=== PATIENT | female | born 1955 | race Caucasian/White ===

== ENCOUNTER 2021-02-18 10:32 | Day surgery (SDC) | payer MEDICARE ==
[2021-02-14 11:12] LABS: BASOPHILS % (AUTO) 0.4 % (0-1); EOSINOPHILS # (AUTO) 0.1 X10'3 (0-0.9); EOSINOPHILS % (AUTO) 2.6 % (0-6); LYMPHOCYTES # (AUTO) 0.9 X10'3 (1.1-4.8); LYMPHOCYTES % (AUTO) 31.1 % (21-51); MEAN CORPUSCULAR HEMOGLOBIN 33.9 PG (27.0-31.0); MEAN CORPUSCULAR HGB CONC 34.7 g/dL (33.0-36.5); MEAN CORPUSCULAR VOLUME 97.9 FL (78-98); MEAN PLATELET VOLUME 7.5 FL (7.4-10.4); MONOCYTES # (AUTO) 0.5 X10'3 (0-0.9); MONOCYTES % (AUTO) 16.3 % (2-12); NEUTROPHILS # (AUTO) 1.5 X10'3 (1.8-7.7); NEUTROPHILS % (AUTO) 49.6 % (42-75); PRE OP HEMATOCRIT 38.3 % (35.0-45.0); PRE OP HEMOGLOBIN 13.3 g/dL (12.0-16.0); PRE OP PLATELET COUNT 220 X10'3 (140-440); RED BLOOD COUNT 3.91 X10'6 (4.20-5.60); RED CELL DISTRIBUTION WIDTH 14.3 % (11.5-14.5)
[2021-02-14 11:27] LABS: ALBUMIN 3.1 G/DL (3.4-5.0); ALKALINE PHOSPHATASE 82 IU/L (46-116); BLOOD UREA NITROGEN 7 MG/DL (7-18); BUN/CREATININE RATIO 15.9 (6.6-38.0); CALCIUM 8.2 MG/DL (8.5-10.1); CHLORIDE 98 MMOL/L (99-107); CREATININE 0.44 MG/DL (0.40-0.90); PRE OP ALT 16 U/L (30-65); PRE OP ANION GAP 10 (8-16); PRE OP AST 15 U/L (10-37); PRE OP BILIRUB, TOTAL 0.8 MG/DL (0.0-1.0); PRE OP GLUCOSE 89 MG/DL (70-104); PRE OP SODIUM 136 MMOL/L (135-145); TOTAL CARBON DIOXIDE 28.2 MMOL/L (24-32); TOTAL PROTEIN 6.1 G/DL (6.4-8.2); eGFR > 90 ML/MIN
[2021-02-14 11:31] LABS: PRE OP POTASSIUM 3.3 MMOL/L (3.4-5.1)
[2021-02-14 11:49] LABS: TOTAL CELLS COUNTED 100
[2021-02-14 11:50] LABS: PLATELET ESTIMATE NORMAL
[~2021-02-18] VITALS: Ht 170.2 cm; Wt 51.9 kg
[~2021-02-18 10:32] MED LIST: ALBU8HFA IH; HYDR-3972 PO; IBUP-24 PO; VANCOMYCIN INJ 1000 MG in NORMAL SALINE 250ml IV.SOLN IV ONE; albuterol 2.5 MG/3 ML nebule NEB ONE; ceFAZolin 2gm in dextrose, iso 50 ML IV ONE; famotidine 20mg tablet PO ONE; ringers solution, lacted 1,000 ML IV SCH
[2021-02-18 10:40] VITALS: BP 156/97
[2021-02-18] MEDS ORDERED: ondansetron/PF 4mg/2ml inj ONE ×2 (12:52→13:54)
[2021-02-18] MEDS ORDERED: ePHEDrine 50MG/ML INJ. ONE ×2 (12:52→13:55)
[2021-02-18] MEDS ORDERED: sevoflurane 250ml liquid IH ONE (12:52)
[2021-02-18] MEDS ORDERED: LIDOcaine 1%/PF 5ML 10 MG/ML VIAL ONE ×2 (12:52→13:54)
[2021-02-18] MEDS ORDERED: neostigmine methylsulfate 1 MG/ML 10ml vial ONE ×2 (12:52→14:02)
[2021-02-18] MEDS ORDERED: dexamethasone sod phosphate 10mg/ml inj ONE (12:52)
[2021-02-18] MEDS ORDERED: rocuronium 10mg/ml inj IV ONE ×2 (12:52→13:54)
[2021-02-18] MEDS ORDERED: glycopyrrolate 0.2mg/ml inj ONE ×2 (12:52→14:02)
[2021-02-18] MEDS ORDERED: propofol 10mg/ml 20ml vial IV ONE (12:52)
[2021-02-18] MEDS ORDERED: fentaNYL/PF 50MCG/1 ML 2ML syringe ONE (12:57)
[2021-02-18] MEDS ORDERED: midazolam 1 mg/ML 2ml injection ONE (13:37)
[2021-02-18] MEDS ORDERED: morphine 2 MG/ML inj. syringe IV PRN (13:45)
[2021-02-18] MEDS ORDERED: hydrALAZINE 20mg/ml inj. IV PRN (13:45)
[2021-02-18] MEDS ORDERED: labetalol 20mg/4ml (5mg/ml) syringe IV PRN (13:45)
[2021-02-18] MEDS ORDERED: meperidine/PF 25mg/ml syringe IV PRN ×3 (13:45)
[2021-02-18] MEDS ORDERED: ringers solution, lacted 1,000 ML IV SCH (13:45)
[2021-02-18] MEDS ORDERED: acetaminophen 1,000mg/100ml IV 100 ML IV PRN (13:45)
[2021-02-18] MEDS ORDERED: proCHLORperazine 10 MG/2 ml inj IV PRN (13:45)
[2021-02-18] MEDS ORDERED: morphine 4 MG/ML inj SYRINge IV PRN (13:45)
[2021-02-18] MEDS ORDERED: ondansetron/PF 4mg/2ml inj IV PRN (13:45)
[2021-02-18] MEDS ORDERED: LIDOcaine 2% (20mg/ml) 5ml vial ONE (13:54)
[2021-02-18] MEDS ORDERED: 0.9 % SODIUM CHLORIDE 10 ML VIAL ONE (13:54)
[2021-02-18] MEDS ORDERED: dexamethasone sod phosphate 4mg/ml inj. ONE (13:54)
[2021-02-18] MEDS ORDERED: propofol inj 20 ML IV ONE (13:54)
[2021-02-18] MEDS ORDERED: ROPIVAcaine 0.5% (5mg/ml) 30ml vial ONE (13:54)
--- NOTE | 2021-02-18 14:14 | NUR ---
ASSUME CARE VSS NO DISTRESS DRESSING TO RIGHT SHOULDER CDI ABLE TO HIGH, IV TO LEFT WRIST CDI, +CMS TO THE RIGHT HAND AND FINGERS CONT TO MONITOR Addendum: 02/18/21 at 1435 by Ella Randolph RN Amended: Links added.
[2021-02-18 14:20] VITALS: BP 146/77
[2021-02-18 14:30] VITALS: BP 133/86
[2021-02-18 14:40] VITALS: BP 139/83
[2021-02-18 14:50] VITALS: BP 134/76
--- NOTE | 2021-02-18 15:00 | NUR ---
PT AWAKE ALERT VSS NO DISTRESS LILI PO'S DENIES PAIN, MEETS CRITERIA TO GO HOME DC INSTR GIVEN RIDE CALL Addendum: 02/18/21 at 1543 by Ella Randolph RN Amended: Links added.
== END 2021-02-18 15:14 | disposition home or self-care (01) ==
LOC: PAS 10:32
PROVIDERS: ATTEND Orthopaedic Surgery
DX: S42.231A 3-part fracture of surgical neck of right humerus, initial encounter for closed fracture (principal); G89.18 Other acute postprocedural pain; M81.0 Age-related osteoporosis without current pathological fracture; J44.9 Chronic obstructive pulmonary disease, unspecified; F17.210 Nicotine dependence, cigarettes, uncomplicated; Z72.89 Other problems related to lifestyle; Z90.49 Acquired absence of other specified parts of digestive tract; Z98.890 Other specified postprocedural states; Z98.51 Tubal ligation status; Z20.822 Contact with and (suspected) exposure to COVID-19; Z79.899 Other long term (current) drug therapy; W10.9XXA Fall (on) (from) unspecified stairs and steps, initial encounter; Y93.89 Activity, other specified; Y92.89 Other specified places as the place of occurrence of the external cause; Y99.8 Other external cause status
CPT/HCPCS: 23615; 36415; 64415; 71046; 73060; 76000; 76942; 80053; 82948; 85025; 86885; 86900; 86901; 93005; A6222; C1713; J1100; J2001; J2250; J2405; J2704; J2710; J3010; J3370; J7120; U0003; U0005; Z7506; Z7508; Z7512; 85007; A4565; A4618; A6449; A7000; J2795; J3490